=== PATIENT | male | born 1970 | race Caucasian/White ===

== ENCOUNTER 2020-02-01 23:31 | Emergency (ER) | payer OTHER ==
[2020-02-01] MEDS ORDERED: HYDROMORPHONE HCL INJ/PF 2 MG/ML AMPULE IV ONE (23:56)
[2020-02-01] MEDS ORDERED: ONDANSETRON HCL INJ/PF 4 MG/2 ML SDV IV ONE (23:57)
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
--- NOTE | 2020-02-02 00:41 | RADIOLOGY REPORT (SQ) ---
3 VIEWS OF RIGHT SHOULDER HISTORY: Shoulder pain. COMPARISON: None. FINDINGS: There is superior dislocation of the distal clavicle with respect to the acromion consistent with mild AC joint separation. No fracture fragment is seen. There is surrounding soft tissue swelling. IMPRESSION: Mild AC joint separation. No fracture is seen.
[2020-02-02] MEDS ORDERED: HYDROCODONE/ACETAMINOPHEN 5-325 MG (6 TAB/ER DISP) PO PRN (01:00)
[2020-02-02 01:47] VITALS: BP 136/74
== END 2020-02-02 01:47 | disposition home or self-care (01) ==
LOC: ER 23:31
DX: S43.101A Unspecified dislocation of right acromioclavicular joint, initial encounter (principal); M79.641 Pain in right hand; V86.56XA Driver of dirt bike or motor/cross bike injured in nontraffic accident, initial encounter; Y93.59 Activity, other involving other sports and athletics played individually
CPT/HCPCS: 99283; 96374; 96375; 73030; J1170; J2405